=== PATIENT | male | born 2005 | race Caucasian/White ===

== ENCOUNTER 2025-03-26 17:50 | Emergency (ER) | payer BC ==
[~2025-03-26] VITALS: Ht 175.3 cm; Wt 90.0 kg
[2025-03-26 17:53] VITALS: O2SAT 97
[2025-03-26 20:00] VITALS: BP 146/65; PULSE 76; RESP 18; TEMP 36.9; O2SAT 98
== END 2025-03-26 20:06 | disposition home or self-care (01) ==
LOC: ER 17:50
DX: S01.01XA Laceration without foreign body of scalp, initial encounter (principal); R51.9 Headache, unspecified; W19.XXXA Unspecified fall, initial encounter; Y93.89 Activity, other specified; Y92.89 Other specified places as the place of occurrence of the external cause; Y99.8 Other external cause status
CPT/HCPCS: 12002; 99284